=== PATIENT | male | born 1980 | race African-American/Black ===

== ENCOUNTER 2020-10-06 13:53 | Emergency (ER) | payer BC ==
[2020-10-06 14:01] VITALS: BP 132/76
[2020-10-06] MEDS ORDERED: ONDANSETRON 4 MG TAB.RAPDIS PO ONE (14:46)
--- NOTE | 2020-10-06 14:52 | ER Document Report ---
HPI - HPI Time Seen by Provider: 10/06/20 14:42 Pain Level: 3 Context: Patient is a 40-year-old male who presents to the emergency department with a chief complaint of nausea, but no vomiting. Patient ate some eggs and corn beef hash and did not feel well after. He has not vomited. Denies any urinary symptoms. Denies any pain. - ROS Systems Reviewed and Negative: Yes All other systems reviewed and negative - CONSTITUTIONAL Constitutional: DENIES: Fever, Chills - GASTROINTESTINAL Gastrointestinal: REPORTS: Nausea. DENIES: Abdominal Pain, Black / Bloody Stools - REPRODUCTIVE Reproductive: DENIES: : - DERM Skin Color: Normal Skin Problems: None Past Medical History - General Information source: Patient - Social History Smoking Status: Never Smoker Chew tobacco use (# tins/day): No Frequency of alcohol use: None Drug Abuse: None Family History: Reviewed & Not Pertinent Patient has homicidal ideation: No Vertical Provider Document - CONSTITUTIONAL Agree With Documented VS: Yes Exam Limitations: No Limitations General Appearance: No Apparent Distress - HEENT HEENT: Atraumatic, Normocephalic, PERRLA - NECK Neck: Normal Inspection - RESPIRATORY Respiratory: Breath Sounds Normal, No Respiratory Distress - CARDIOVASCULAR Cardiovascular: Regular Rate, Regular Rhythm Pulses: Normal: Radial - GI/ABDOMEN Gastrointestinal: Abdomen Soft, Abdomen Non-Tender - MUSCULOSKELETAL/EXTREMETIES Musculoskeletal/Extremeties: FROM - NEURO Level of Consciousness: Awake, Alert, Appropriate Motor/Sensory: No Motor Deficit, No Sensory Deficit - DERM Integumentary: Warm, No Rash Course - Re-evaluation Re-evalutation: 10/06/20 14:52 Patient states that he feels better after receiving Zofran. We will send him home with Zofran. Have a low suspicion for appendicitis, bowel obstruction, appendicitis, or any life-threatening etiology at this time. Follow-up precau tions were given. Verbal discharge instructions were given to the patient. They verbalized understanding. They are stable for discharge. - Vital Signs Vital signs: Temp Pulse Resp BP Pulse Ox 97.8 F 89 18 132/76 H 100 10/06/20 14:01 10/06/20 14:01 10/06/20 14:01 10/06/20 14:01 10/06/20 14:01 Discharge - Discharge Clinical Impression: Nausea Condition: Stable Disposition: HOME, SELF-CARE Additional Instructions: You were seen today in the emergency department for nausea, which got better with Zofran, nausea medication. Take the nausea medication as needed. Please not eat whatever he ate before coming here to the emergency department. Prescriptions: Ondansetron [Zofran Odt 4 mg Tablet] 1 - 2 tab PO Q4H PRN #15 tab.rapdis PRN Reason: For Nausea/Vomiting Forms: Return to Work
== END 2020-10-06 16:09 | disposition home or self-care (01) ==
LOC: ER 13:53
DX: R11.0 Nausea (principal)
CPT/HCPCS: 99283; S0119